=== PATIENT | female | born 1960 | race Caucasian/White ===

== ENCOUNTER 2019-04-27 06:46 | Day surgery (SDC) | payer MEDICARE, MEDICAID ==
[~2019-04-27] VITALS: Ht 165.2 cm; Wt 134.0 kg
[2019-04-27] VITALS (16 sets, daily range): BP systolic 126–201; BP diastolic 35–107; PULSE 65–99; TEMP 97.4–98.3
[2019-04-27 07:39] LABS: HEMATOCRIT 42.1 % (37.0-47.0); HEMOGLOBIN 14.2 g/dl (12.5-16.0); MEAN CELL VOLUME 95 fl (80.0-100.0); MEAN CORPUSCULAR HEMOGLOBIN 32 pg (27.0-31.0); MEAN CORPUSCULAR HGB CONC 34 g/dl (33.0-37.0); MEAN PLATELET VOLUME 11.3 fl (7.4-10.4); PLATELET COUNT 152 K/mm3 (130-400); RED BLOOD COUNT 4.44 M/mm3 (4.10-5.30); REDCELL DISTRIBUTION WIDTH-CV 13.4 % (11.5-14.5)
[2019-04-27 07:42] LABS: PROTHROMBIN TIME 11.2 SECONDS (9.7-12.8)
[2019-04-27 07:48] LABS: CALCIUM 9.6 mg/dL (8.4-10.2); CREATININE, serum 0.8 (0.52-1.25)
[2019-04-27] MEDS ORDERED: IMDUR 30MG30 MG/TAB PO (07:53)
[2019-04-27] MEDS ORDERED: PRINZIDE 25 MG-1 TAB PO (07:53)
[2019-04-27] MEDS ORDERED: LOPRESSOR 225 MG/TAB PO (07:56)
[2019-04-27] MEDS ORDERED: TYLENOL 8 HR PO (07:57)
[2019-04-27] MEDS ORDERED: ZANAFLEX CAPSULE4 MG PO (07:57)
[2019-04-27] MEDS ORDERED: ZOCOR 40MG40 MG PO (07:59)
--- NOTE | 2019-04-27 09:44 | NUR ---
SEE LIGIA FOR MEDICATION ADMINISTRATION TIMES AND INTRA AND POST SEDATION ASSESSMENT
--- NOTE | 2019-04-27 16:31 | NUR ---
LUCIE met with the patient and the patient's son, Anthony Smith ([id number]#[phone]), to discuss discharge plan. The patient lives alone in [place]. Anthony reports that he lives in [place]. She reports independence with ADLs and does not have any DME. The patient does not have a PCP, but she states that she is interested in getting set up with one. The patient and her son report that they would like to look at and research the different doctors in [place] before making a decision on one. She receives her medications at [facility] and she reports no difficulties obtaining her meds. The patient does not have advanced directives completed, but she was interested in obtaining a form for DPOA-HC. LUCIE provided. The patient states that she has three children: Anthony Smith, Tammy Stevens, and Gilda Stevens. The patient plans to return home upon discharge. No other additional needs at this time.
--- NOTE | 2019-04-27 19:03 | NUR ---
Pt rested comfortably in room since coming to the floor this afternoon, BP has stabilized in the 130 to 140 range, BP dropped afert administering her lopressor and coreg as ordered, post op monitoring complete with no complications, constriction band completely deflated without bleeding noted, covered site with 2X2s and wrapped with coban, some C/O minor pain early and medications given, no C/O pain currently.
--- NOTE | 2019-04-27 22:02 | NUR ---
Pt doing well. Here for left cardiac cath. Right radial site CD&I, no bleeding. Covered with gauze and coban. Denies pain. States she is feeling good. BP are now stable with last BP 126/73. Pt has IV INT to left ac. Patient denies needs at this time. Call light within reach, will continue to monitor
[2019-04-28] VITALS (9 sets, daily range): BP systolic 101–131; BP diastolic 55–71; PULSE 56–89; TEMP 97.6–101.2
--- NOTE | 2019-04-28 04:06 | NUR ---
Patient sleeping in room. VSS. Left radial site CD&I. No bleeding noted. Call light within reach, will continue to monitor.
--- NOTE | 2019-04-28 07:00 | NUR ---
Patient resting in bedside recliner at this time. Patient is alert and oriented, answers questions appropriately. Patient denies pain at this time. Right hand is pink and warm to the touch, no edema visible, radial pulse present and strong, cap refill <3 seconds. Patient denies further needs at this time, call light within reach.
--- NOTE | 2019-04-28 10:14 | NUR ---
Visited, listened,and provided spiritual care.
[2019-04-28] MEDS ORDERED: ASPIRIN E.C. 8181 MG PO (12:34)
[2019-04-28] MEDS ORDERED: PLAVIX 75MG TAB75 MG PO (12:34)
--- NOTE | 2019-04-28 14:10 | NUR ---
Discharge teaching completed. Reviewed new medications, standard discharge instructions, procedures for making follow up appointment, and post heart cath instructions. Patient and family denied any questions or needs. INT discontinued, hemostasis achieved, cannula removed intact. Telemetry removed. Patient denies further needs, walked out by medical staff.
== END 2019-04-28 14:30 | disposition home or self-care (01) ==
LOC: COL.CAR 06:46 → MEDICAL 11:00 → COL.CAR 04-28 14:30
PROVIDERS: Internal Medicine Cardiovascular Disease
DX: I25.118 Atherosclerotic heart disease of native coronary artery with other forms of angina pectoris (principal); I10 Essential (primary) hypertension; I25.9 Chronic ischemic heart disease, unspecified; E11.9 Type 2 diabetes mellitus without complications; E66.9 Obesity, unspecified; Z68.43 Body mass index [BMI] 50.0-59.9, adult; E78.5 Hyperlipidemia, unspecified; Z86.718 Personal history of other venous thrombosis and embolism; Z79.899 Other long term (current) drug therapy
CPT/HCPCS: OP; C1725; C1769; C1874; C1887; C9600; J1644; J1940; J2250; J3010